=== PATIENT | male | born 1955 | race Caucasian/White ===

== ENCOUNTER 2021-03-05 15:37 | Day surgery (SDC) | payer MEDICARE, MEDICAID ==
[2021-02-28 14:46] LABS: BASOPHILS # (AUTO) 0.1 X10'3 (0-0.2); BASOPHILS % (AUTO) 0.6 % (0-1); EOSINOPHILS # (AUTO) 0.4 X10'3 (0-0.9); EOSINOPHILS % (AUTO) 4.2 % (0-6); LYMPHOCYTES # (AUTO) 1.4 X10'3 (1.1-4.8); LYMPHOCYTES % (AUTO) 16.4 % (21-51); MEAN CORPUSCULAR HEMOGLOBIN 30.4 PG (27.0-31.0); MEAN CORPUSCULAR HGB CONC 33.8 g/dL (33.0-36.5); MEAN CORPUSCULAR VOLUME 90.1 FL (78-98); MONOCYTES % (AUTO) 11.4 % (2-12); NEUTROPHILS # (AUTO) 5.7 X10'3 (1.8-7.7); NEUTROPHILS % (AUTO) 67.4 % (42-75); PRE OP HEMATOCRIT 42.4 % (42.0-52.0); PRE OP HEMOGLOBIN 14.3 g/dL (14.0-17.9); PRE OP PLATELET COUNT 235 X10'3 (140-440); RED BLOOD COUNT 4.71 X10'6 (4.70-6.10); RED CELL DISTRIBUTION WIDTH 13.1 % (11.5-14.5)
[2021-02-28 15:00] LABS: PRE OP PROTIME 10.4 SECONDS (9.0-12.0)
[2021-02-28 15:01] LABS: ALBUMIN 3.8 G/DL (3.4-5.0); ALKALINE PHOSPHATASE 93 IU/L (46-116); BLOOD UREA NITROGEN 35 MG/DL (7-18); BUN/CREATININE RATIO 16.1 (5.4-32.0); CALCIUM 10.3 MG/DL (8.5-10.1); CHLORIDE 104 MMOL/L (99-107); CREATININE 2.17 MG/DL (0.60-1.10); PRE OP ALT 32 U/L (30-65); PRE OP ANION GAP 9 (8-16); PRE OP AST 20 U/L (10-37); PRE OP BILIRUB, TOTAL 0.5 MG/DL (0.0-1.0); PRE OP GLUCOSE 89 MG/DL (70-104); PRE OP POTASSIUM 3.5 MMOL/L (3.4-5.1); PRE OP SODIUM 143 MMOL/L (135-145); TOTAL CARBON DIOXIDE 29.9 MMOL/L (24-32); TOTAL PROTEIN 7.7 G/DL (6.4-8.2); eGFR 31 ML/MIN
[2021-03-05] VITALS (21 sets, daily range): BP systolic 96–182; BP diastolic 66–110
[~2021-03-05] VITALS: Ht 185.4 cm; Wt 127.3 kg
[2021-03-05] MEDS: ringers solution, lacted 1,000 ML IV SCH ×2 (09:01→18:58)
--- NOTE | 2021-03-05 10:15 | NUR ---
AWARE OF ABNORMAL LABS DRAWN TODAY. NO NEW ORDERS NOTED. Addendum: 03/05/21 at 1058 by Bettina Alvarez RN Amended: Links added.
[2021-03-05 10:23] LABS: ALBUMIN 3.4 G/DL (3.4-5.0); ALBUMIN/GLOBULIN RATIO 0.9 (1.1-1.5); ALKALINE PHOSPHATASE 70 IU/L (46-116); BLOOD UREA NITROGEN 28 MG/DL (7-18); BUN/CREATININE RATIO 15.2 (5.4-32.0); CALCIUM 9.6 MG/DL (8.5-10.1); CHLORIDE 106 MMOL/L (99-107); CREATININE 1.84 MG/DL (0.60-1.10); PRE OP ALT 28 U/L (30-65); PRE OP ANION GAP 10 (8-16); PRE OP AST 16 U/L (10-37); PRE OP BILIRUB, TOTAL 0.6 MG/DL (0.0-1.0); PRE OP GLUCOSE 188 MG/DL (70-104); PRE OP SODIUM 146 MMOL/L (135-145); TOTAL CARBON DIOXIDE 30.5 MMOL/L (24-32); TOTAL PROTEIN 7.1 G/DL (6.4-8.2); eGFR 37 ML/MIN
[2021-03-05 10:25] LABS: PRE OP POTASSIUM 3.2 MMOL/L (3.4-5.1)
--- NOTE | 2021-03-05 15:10 | NUR ---
UNABLE TO ASSESS DERMATOME LEVEL AT THIS TIME. Addendum: 03/05/21 at 1607 by Tammy Hills RN Amended: Links added.
--- NOTE | 2021-03-05 15:10 | NUR ---
Received from OR via BED IN STABLE CONDITION , accompanied by Anesthesiologist and CABIN FURNISHINGS INSTALLER report given by CABIN FURNISHINGS INSTALLER AND Anesthesiolgist.
--- NOTE | 2021-03-05 15:30 | NUR ---
DERMATOME LEVEL T10 Addendum: 03/05/21 at 1610 by Tammy Hills RN Amended: Links added.
[2021-03-05] MEDS: potassium Cl 20mEq in NS 1,000 ML IV SCH (15:35)
[~2021-03-05 15:37] MED LIST: AMLO10TA13 PO; BUPIVAcaine/PF 2.5 mg/ml (0.25%) 30ml vial ONE; DOCUMENT DATE & TIME OF BETA-BLOCKER PO ONE; HYDROcodone/acetaminophen 10/325mg tab PO PRN; HYDROmorphone 1 mg/ml syringe IV PRN; IBUP-1986 PO; LEVO112T5 PO; LORA10TA7 PO; LOSA1TAB39 PO; METF-438 PO; METO50TA16 PO; MIDAZolam 1mg/ml 10ml vial ONE; SANDOZ PO; TRAM50TA2 PO; Thrombin (Bovine) 5,000 unit vial TP ONE; acetaminophen 325mg tablet PO PRN; bisacodyl 10mg suppository rectal RC PRN; ceFAZolin 1000mg inj ONE; ceFAZolin inj. 3,000 MG in normal saline 100ml IV soln 100 ML IV ONE; diphenhydrAMINE 25mg capsule PO PRN; diphenhydrAMINE 50 mg/ml inj ONE; famotidine 20mg tablet PO ONE; fentaNYL/PF 50MCG/1 ML 2ML syringe ONE; gelatin sponge, absorbable (Gelfoam 100) sponge TP ONE; magnesium hydroxide 30ml (MOM) UD suspension PO PRN; meperidine/PF 25mg/ml syringe IV PRN; morphine 2 MG/ML inj. syringe IV PRN; morphine 4 MG/ML inj SYRINge IV PRN; ondansetron/PF 4mg/2ml inj IV PRN; proCHLORperazine 10 MG/2 ml inj IV PRN; propofol inj 20 ML IV ONE; ringers solution, lacted 1,000 ML IV SCH; tetracaine 1% (10mg/ml) pres. free inj. ONE; vancomycin 1,500 MG in NS 300ml IV soln IV ONE
[2021-03-05] MEDS ORDERED: POTA10TA36 PO (15:41)
[2021-03-05] MEDS ORDERED: dextrose ORAL solution 15 GM/59 ML bottle PO PRN ×2 (15:50)
[2021-03-05] MEDS ORDERED: insulin Lispro (HumaLOG) vial - multi-dose SQ SCH (15:50)
[2021-03-05] MEDS ORDERED: MESSAGE TO PHARMACY PO ONE (15:50)
[2021-03-05] MEDS ORDERED: glucagon, human recombinant 1mg kit SUBCUT PRN (15:50)
[2021-03-05] MEDS ORDERED: dextrose 50%-water 50ml dispensing syringe IV PRN ×2 (15:50)
--- NOTE | 2021-03-05 15:50 | NUR ---
DERMATOME LEVEL T12 Addendum: 03/05/21 at 1612 by Tammy Hills RN Amended: Links added.
[2021-03-05] MEDS: ceFAZolin/D5W- 1GM premix 50 ML IV SCH (16:00)
--- NOTE | 2021-03-05 16:11 | NUR ---
DERMATOME LEVEL L1 Addendum: 03/05/21 at 1612 by Tammy Hills RN Amended: Links added.
--- NOTE | 2021-03-05 16:50 | NUR ---
PATIENT DISCHARGED FROM PACU IN STABLE CONDITION AFTER REPORT GIVEN TO NURSE TAKING OVER PATIENTS CARE. PATIENT TRANSFERRED VIA BED WITH TIFFANY AND DEEPALI. Addendum: 03/05/21 at 1700 by Tammy Hills RN Amended: Links added.
--- NOTE | 2021-03-05 17:27 | NUR ---
Patient just arrived to his new room from PACU. Patient alert, oriented. Right lower leg is casted, patient currently still very numb from the spinal anesthesia, sensation (+) at the upper thigh, unable to wiggle toes or move legs at this time. Patient was hooked to vital sign machine to monitor postop vitals
[2021-03-05 19:55] LABS: MAGNESIUM 1.5 MG/DL (1.5-2.4); POTASSIUM 3.5 MMOL/L (3.5-5.1)
[2021-03-05] MEDS ORDERED: metFORMIN 500mg tablet PO SCH (20:00)
[2021-03-05] MEDS: HYDROcodone/acetaminophen 10/325mg tab PO PRN (20:09)
[2021-03-05] MEDS ORDERED: insulin glargine (Lantus) pen - multi-dose SQ SCH (21:00)
[2021-03-05] MEDS ORDERED: sennosides 8.6mg tablet PO SCH (21:00)
[2021-03-05] MEDS ORDERED: amLODIPine 5mg tablet PO SCH (21:00)
[2021-03-05] MEDS ORDERED: metoprolol tartrate 50mg tablet PO SCH (21:00)
[2021-03-06] VITALS: BP 150/97
[2021-03-06] MEDS: HYDROcodone/acetaminophen 10/325mg tab PO PRN ×3 (00:39→10:34)
[2021-03-06] MEDS: potassium Cl 20mEq in NS 1,000 ML IV SCH (00:40)
[2021-03-06] MEDS: ceFAZolin/D5W- 1GM premix 50 ML IV SCH (00:41)
--- NOTE | 2021-03-06 06:39 | NUR ---
Patient in room MAX 356. I have received report from Mark and had the opportunity to ask questions and assume patient care.
--- NOTE | 2021-03-06 06:40 | NUR ---
Problems reprioritized. Patient report given, questions answered & plan of care reviewed with PAN ALLEN.
[2021-03-06 08:00] VITALS: BP 143/93
[2021-03-06] MEDS ORDERED: potassium chloride 10mEq ER tablet PO SCH (08:00)
[2021-03-06] MEDS ORDERED: losartan 50mg tablet PO SCH (08:00)
[2021-03-06] MEDS ORDERED: SANDOZ PO SCH (08:00)
[2021-03-06] MEDS ORDERED: loratadine 10mg tablet PO SCH (08:00)
[2021-03-06] MEDS ORDERED: levoTHYROXINE 112mcg tablet PO SCH (08:00)
[2021-03-06] MEDS ORDERED: HYDROchlorothiazide 25mg tablet PO SCH (08:00)
--- NOTE | 2021-03-06 11:05 | NUR ---
Student Medication Administration: For this medication-pass time frame [id number], all medications were reviewed, administered and documented per hospital policy by Saurabh Britton. Student documentation: I have reviewed and agree with all interventions, assessments performed and documented by Saurabh Britton.
[2021-03-06 11:45] VITALS: BP 125/71
[2021-03-06] MEDS ORDERED: ASPI-1264 PO (12:29)
[2021-03-06] MEDS ORDERED: HYDR-3972 PO (12:29)
== END 2021-03-06 13:15 | disposition home or self-care (01) ==
LOC: PAS 15:37 → SUR 3N 17:15 → PAS 03-06 13:15
PROVIDERS: ATTEND Orthopaedic Surgery
DX: M19.071 Primary osteoarthritis, right ankle and foot (principal); E11.9 Type 2 diabetes mellitus without complications; G47.30 Sleep apnea, unspecified; I10 Essential (primary) hypertension; G89.18 Other acute postprocedural pain; I48.91 Unspecified atrial fibrillation; E66.01 Morbid (severe) obesity due to excess calories; Z68.37 Body mass index [BMI] 37.0-37.9, adult; Z87.891 Personal history of nicotine dependence; Z98.890 Other specified postprocedural states; Z79.01 Long term (current) use of anticoagulants; Z79.84 Long term (current) use of oral hypoglycemic drugs; Z79.82 Long term (current) use of aspirin; Z20.822 Contact with and (suspected) exposure to COVID-19; Z86.19 Personal history of other infectious and parasitic diseases
CPT/HCPCS: 27870; 36415; 64445; 64447; 76942; 80053; 82948; 83036; 83735; 84132; 85025; 85610; 85730; 87081; 93005; 97110; 97161; 97530; A6223; C1713; C1758; J0690; J1170; J1200; J2250; J2405; J2704; J3010; J3370; J3480; J3490; J7040; J7120; U0003; U0005; Z7506; Z7508; Z7512; A4615; A4618; A6449; A7000; G0378; J1815